=== PATIENT | female | born 1995 | race Caucasian/White ===

== ENCOUNTER 2017-09-22 13:19 | Emergency (ER) | payer MEDICAID, OTHER ==
[~2017-09-22] VITALS: Ht 170.2 cm; Wt 67.0 kg
[2017-09-22 13:30] VITALS: BP 110/72
== END 2017-09-22 14:46 | disposition home or self-care (01) ==
LOC: ED 14:36
DX: H60.91 Unspecified otitis externa, right ear (principal)
CPT/HCPCS: 99283